=== PATIENT | female | born 1975 | race Caucasian/White ===

== ENCOUNTER 2021-01-28 00:01 | Day surgery (SDC) | payer OTHER, SELFPAY ==
[2021-01-21 12:18] VITALS: BMI 29.2
[2021-01-28] VITALS (9 sets, daily range): BP systolic 94–118; BP diastolic 46–74; PULSE 50–80; RESP 14–18; TEMP 36.4–36.6; O2SAT 100; BMI 29.5
[2021-01-28] MEDS: LACTATED RINGERS 1,000 ML 30 ML IV CONT ×2 (11:32→15:08)
--- NOTE | 2021-01-28 11:34 | P.PNAN_ITS ---
Anes - Initial Pre Proc Eval Procedure: Operation Date: 01/28/21 13:00 Proposed Procedures p Laparoscopic Bilateral Tubal Sterilization with Fulgeration - Nikki Granados MD s Hysteroscopy with Lisa Endometrial Ablation - Nikki Granados MD Date/Time: 01/28/21 11:34 Surgeon: Nikki Granados MD Pre Op Diagnosis: desires sterilization, abnormal uterine bleeding Patient Data Age: 45 Gender: F Height: 1.63 m Weight: 78 kg Allergies Allergy/AdvReac Type Severity Reaction Status Date / Time No Known Allergies Allergy Verified 01/28/21 11:18 Home Medications Medication Instructions Recorded Confirmed Type sumatriptan succinate 25 mg tablet 25 mg PO ONCE PRN #10 tablet 11/01/20 01/21/21 Rx levothyroxine 50 mcg PO DAILY 01/21/21 01/28/21 History Patient hx anesthesia problems: none Family hx anesthesia problems: none Results Review: All pre-operative results and documents have been reviewed as part of the pre-operative evaluation. [facility] Past Medical History Medical History Hypothyroid Migraine without aura, intractable, without status migrainosus Vitamin D deficiency Family History Family History Grandparent Family history of lung cancer Family history of dementia Social History Social History Smoking status: Never smoker Alcohol intake: current Alcohol use details: RARE Substance use: never Substance use type: does not use Living arrangements: with family Spiritual care concerns: No Anes - Eval Final PreProcedure Day of Procedure 01/28/21 11:34 Patient weight: overweight Heart: regular rate and rhythm Lungs: clear to auscultation Airway: Mallampati scale class II Neurological: alert and oriented Last oral intake: >/= 8 hours ASA classification: II Emergent: no Anesthetic plan: proceed Anesthesia type and monitoring: general ETT and standard monitoring Results Review: All pre-operative results and documents have been reviewed as part of the pre-operative evaluation. Informed Consent: The patient's anesthetic plan and its attendant risks and benefits were discussed with the patient/family/POA. Questions were solicited and answers provided to the satisfaction of the patient/family/POA.
[2021-01-28 11:37] LABS: Hematocrit 38.6 % (37.0-47.0); Mean Corpuscular HGB Conc 33.7 g/dl (32-36); Mean Corpuscular Hemoglobin 31.9 pg (26-34); Mean Corpuscular Volume 94.6 fl (80-100); Mean Platelet Volume 9.6 fl (7.4-10.4); Platelet Count Result 225 k/mm3 (150-375); Red Blood Count 4.08 M/mm3 (4.2-5.4); Red Cell Distribution Width 12.6 % (11.5-14.5); White Blood Count 5.5 K/mm3 (4.5-10.0)
[2021-01-28] MEDS: ACETAMINOPHEN 500 MG TABLET 1000 MG PO (11:38)
[2021-01-28] MEDS: KETOROLAC 15 MG/ML VIAL (*BKC) IV PUSH (11:38)
--- NOTE | 2021-01-28 13:05 | SUR.PREOP ---
1240; PT NOTIFIED OF DR COURTNEY TO BE 20 MINUTES LATE. PT STATES NO NEED TO CONTACT HER MOTHER (RIDE)
--- NOTE | 2021-01-28 13:31 | WPDHPUPDATE1 ---
History and Physical Update Update Date/Time: 01/28/21 13:31 History and Physical has been reviewed, including an updated exam of the patient. There are NO changes in the patient's condition. Risks, benefits, and alternatives have been discussed and questions answered. Patient agrees to proceed with procedure.
--- NOTE | 2021-01-28 13:31 | PM.HPGS ---
History of Present Illness History of Present Illness Consent: Risks, benefits, and alternatives have been discussed and questions answered. Patient agrees to proceed with procedure. Chief complaint: desires sterilization, abnormal uterine bleeding Narrative: Peggy Curiel is a 45 year old female CC abnormal uterine bleeding and desires sterlization HPI EMB benign. Failed oral therapy of NSAIDs and not good hormone candidate. Risk/benefits/alnteratives discussed. Plan to move forward wtih hysteroscopy with Endometrial ablation and perform sterilization at same time. She did subsequently break her 5th metatarsal of her left foot. Discussed getting clearance from her ortho doc to have surgery ROS -PHILLIPS, -Vis changes, -F/s/c -CP, -palpitations, -irregular heart beats -SOB, -Cough/wheeze -Abdominal pain, -diarrhea/constipation -Vaginal discharge, -bleeding, -ulcerations or masses -New skin lesions, -dryness, -hairloss -trouble ambulation, -vertigo, -dizziness, -muscle weakeness, -joint pains -depression/anxiety, -suicidal/homicidal ideation, -hallucinations -hotflashes, -nightsweats, - mood swings, -vaginal dryness, -dyspareunia, - insomnia/poor sleep, -hair loss, -skin dryness, -brain fog, -decreased concentration, -intolerance to loud noises, -abnormal weight changes, -libido changes PMHx Mammogram history: - 2020 PSHx section - 2008 Gastric sleeve - 2013 Kidney Stone Removal - 2016 FHx father: Unknown, +Heart Attack maternal grandmother: , +cancer Soc Hx Tobacco: Never smoker Drug Abuse: No illicit drug use Cardiovascular: Regular exercise Safety: Wear seatbelts Others: Current Employment - [employer] Ob Preg Hx Ob History: +Hx of irregular menses G1 T0 L1 OB Comments: Pills, Shot Comments: Medications (Medication reconciliation last updated 10/18/2020 05:24 PM, REJI COURTNEY - Performed) Allergies No known allergies (Allergy reconciliation performed by REJI COURTNEY 05:24 PM 18 Oct 2020 Last updated) Vitals 20 Jan 2021 - 08:44 AM - recorded by Patrica Funez BP: 120.0 / 62.0 HR: 93.0 bpm Temp: 98.1 ?F Ht/Lt: 5' 4 Wt: 172 lbs 0 oz BMI: 29.52 Comments: also had boot on for broken foot EXAM GEN: NAD, well groomed female RESP: nonlabored respirations, No audible wheezes CV: normal rate GI: +BS, nontender to palpation, no rebound or guarding EXT: no cyanosis/clubbing/edema NEURO: AO x 3 PSYCH: judgment/insight intact, NL mood/affect Assessment Abnormal uterine bleeding (disorder) (N93.9/626.9) Abnormal uterine and vaginal bleeding, unspecified modified Oct, Sterilization requested (situation) (Z30.2/V25.2) Encounter for sterilization modified Oct, Plan Plan is hysteroscopy DC with endometrial ablation and laparoscopic tubal sterlization. Surgery is planned for 01/28 at 1pm and post op at 02/11 Plan is to proceed with scheduled surgery. All risks/benefits/alternatives were discussed in detail including: Injury to surrounding organs, infection, bleeding, blood transfusion, and repeat surgery. All post operative care instructions reviewed and were sent to her via the portal for review as well. She agrees to proceed. [facility] Past Medical History Medical History Hypothyroid Migraine without aura, intractable, without status migrainosus Vitamin D deficiency Family History Family History Grandparent Family history of lung cancer Family history of dementia Social History Social History Smoking status: Never smoker Alcohol intake: current Alcohol use details: RARE Substance use: never Substance use type: does not use Living arrangements: with family Spiritual care concerns: No Meds Home Medications and Allergies Home Medications Medication Inst
[2021-01-28] MEDS: LIDOCAINE HCL 1% PF 30 ML VIAL 5 ML INFILTRATE (14:30)
--- NOTE | 2021-01-28 15:02 | W.PM.PROC2 ---
Procedure Note - Detailed Date of Procedure 01/28/21 Pre-op Diagnosis desires sterilization, abnormal uterine bleeding Post-op Diagnosis other (desired sterilization, abnormal uterine bleeding, adhesions of omentum to midanterior abdominal wall and pelvis) Procedure Performed laparoscopic bilateral tubal sterilization with fulguration/bipolar cautery. Laparoscopic lysis of adhesion of omentum to abdomen and pelvis. Hysteroscopy with endometrial ablation with Allan Surgeon Nikki Granados MD Anesthesia general Indications hx of AUB. EMB benign. Desired permanent sterilization and treatment for AUB since nsaids not option and hormones not working. Risk/benefits/alternatives discussed Findings Omental adhesions to mid and lower pelvis. Needed to be removed for safe tubal sterilziation. No bowel involved in adhesions that could be seen. Description of Procedure The patient was taken to the operating room where general anesthesia was adequate. She was then prepared and draped in dorsal lithotomy position in [facility]. A speculum used to visualze the cervix and single toothed tenaculum placed on anterior lip. Uterus sounded to 8.5cm, cervix 3cm. Slayden uterine manipulator placed and affixed to the tenaculum. Attention was turned to the umbilicus which was injected with 1% lidocaine plain and incised with a scalpel in the infraumbilical fold and veres needle used to insert into the umbilical incision after hemostat the subcutaneous tissue down to the fascia. Intraabdominal pressure was 4mmHg and saline drop test confirmed peritoneal entry. The pressure was raised with CO2 to 15mmHg and a 5mm port placed with optical entry. She was then placed in Trendelenberg and it was noted there were dense omental adhesions immediately next to umbilical port site. So a suprapubic port was placed with difficulty viewing the site but safe entry confirmed. Then a left lower quadrant site performed. The camera inserted into the suprapubic port investigated the abdominal adhesiosn and confirmed omentum only attached to mid abdomen down to pelvis. filmy adhesions attached this omentum so graspers used to pull down on the adhesions and free them. There was a slight bleeder noted just next to the umbilical port site so bipolar cautery used to cauterize this bleeder. The pelvic adhesions easily released and the pelvis could then be viewed easily as could the appendix and upper abdomen which now appeared normal. The uterus was elevated and normal ovaries and tubes and uterus present. The right fallopian tube was grasp and cauterized with Kleppenger bipolar cautery along the mid portion of the tube and the paratubal tissue. The left fallopian tube was grasp and similarly cauterized along the mid portion of the tube. The anterior andd posterior culdesacs were free of lesions or abnormality. The camera then reinserted into the suprapubic port and the omental adhesions that were taken down were inspected for bleeding. There was mild blood noted and clot so irrigation used and no active bleeding. However, surgicel powder placed over the small areas that appeard to be oozy or previously bleeding and the procedure was then complete. So pneumoperitoneum was slowly released to watch the bleeding and was hemostatic. So the port sites were removed and the umbilical site was closed deep in subcutaneous with 0-vicryl on UR6 then skin closed with 4-0 monocryl in interrupted fashion. Interrupted sutures only placed on lower incisions. The attention was then turned to the cervix which the carrero manipulator was removed. 0.9% saline used for distension and the hysteroscope was inserted. Normal tubal ostia bilateral and normal cavity noted. The hysteroscope removed and ALLAN prepped. Inserted and set to 5cm. Cavity width was in the green and cavity assessment passed so the procedure then activated and proceeded to complete without complication. The allan removed and
[2021-01-28] MEDS: oxyCODONE HCL (*CRX) 5 MG TAB IR PO (16:22)
--- NOTE | 2021-01-28 16:39 | SUR.PHASEII ---
[id number]- spoke with daniel cameron.
== END 2021-01-28 17:40 | disposition home or self-care (01) ==
PROVIDERS: PCP Nurse Practitioner Family; Visit Provider Obstetrics & Gynecology
PROC: (CPT 58671; principal; 2021-01-28 13:00)
PROC: 0U5B8ZZ Destruction of Endometrium, Via Natural or Artificial Opening Endoscopic (ICD-10-PCS; CPT 58563; 2021-01-28 13:00)
DX: Z30.2 Encounter for sterilization (principal); N93.9 Abnormal uterine and vaginal bleeding, unspecified; N73.6 Female pelvic peritoneal adhesions (postinfective); E03.9 Hypothyroidism, unspecified; E55.9 Vitamin D deficiency, unspecified
CPT/HCPCS: 58670; 58563; 36415; 85027; A9270; J1100; J1885; J2250; J2370; J2405; J2704; J2710; J3010; J7030; J7120